=== PATIENT | male | born 1975 | race Caucasian/White ===

== ENCOUNTER 2021-08-29 03:10 | Emergency (ER) | payer BC ==
[~2021-08-29] VITALS: Ht 172.7 cm; Wt 68.0 kg
--- NOTE | 2021-08-29 03:37 | NUR ---
Dr. Chinchilla at bedside for MSE.
[2021-08-29] MEDS ORDERED: IV NORMAL SALINE 1000 ML BAG IV ONE (03:45)
[2021-08-29] MEDS ORDERED: MORPHINE SULFATE 2 MG/1 ML DISP.SYRIN IV ONE (03:45)
[2021-08-29] MEDS ORDERED: ONDANSETRON 4 MG/2 ML VIAL IV ONE (03:45)
[2021-08-29] MEDS ORDERED: ONDANSETRON 4 MG/2 ML VIAL ONE (03:48)
[2021-08-29] MEDS ORDERED: MORPHINE SULFATE 4 MG/1 ML DISP.SYRIN ONE (03:49)
[2021-08-29] MEDS ORDERED: KETOROLAC TROMETHAMINE 30 MG INJ IVP ONE (04:00)
[2021-08-29 04:51] LABS: HEMATOCRIT 44.1 % (36.7-47.1); MEAN CORPUSCULAR VOLUME 95.5 fL (73.0-96.2); PLATELET COUNT (AUTO) 256 K/uL (152-348)
[2021-08-29 05:02] LABS: POTASSIUM 3.9 mmol/L (3.5-5.1)
[2021-08-29] MEDS ORDERED: KETOROLAC TROMETHAMINE 30 MG INJ ONE (05:08)
[2021-08-29 05:57] LABS: *BILIRUBIN,URIN NEGATIVE (NEGATIVE); *BLOOD, URINE NEGATIVE (NEGATIVE); *CLARITY,URINE CLEAR (CLEAR); *COLOR,URINE YELLOW (YELLOW); *KETONES,URINE TRACE (NEGATIVE); *UROBILINOGEN,URINE 0.2 E.U./dl (NORMAL); LEUKOCYTE ESTERASE ,URINE NEGATIVE (NEGATIVE); NITRITE, URINE NEGATIVE (NEGATIVE); UGLUCOSE NEGATIVE (NEGATIVE)
[2021-08-29] MEDS ORDERED: HYDROMORPHONE 1 MG/1 ML DISP.SYRIN ONE (06:26)
[2021-08-29] MEDS ORDERED: HYDROMORPHONE 1 MG/1 ML DISP.SYRIN IV ONE (06:30)
[2021-08-29] MEDS ORDERED: IBUP-1955 PO (06:30)
[2021-08-29] MEDS ORDERED: HYDR-3972 PO (06:30)
--- NOTE | 2021-08-29 07:39 | NUR ---
PCR COVID TEST ORDERED BY DR CARBONE REFUSED BY PATIENT. NOTIFIED.
[2021-08-29] MEDS ORDERED: CYCL10TA9 PO (07:46)
[2021-08-29 08:02] VITALS: BP 114/60
== END 2021-08-29 08:04 | disposition home or self-care (01) ==
LOC: ER 03:15
DX: R10.31 Right lower quadrant pain (principal); Z87.442 Personal history of urinary calculi; M54.9 Dorsalgia, unspecified
CPT/HCPCS: 36415; 74176; 80048; 81003; 85025; 96361; 96374; 96375; 99284; J1170; J1885; J2270; J2405; J7040; A4663